=== PATIENT | female | born 1990 | race Caucasian/White ===

== ENCOUNTER 2021-08-31 14:22 | Outpatient (REF) | payer MEDICAID, OTHER, SELFPAY ==
--- NOTE | ~2021-08-31 | US_ITS ---
EXAMINATION: US PELVIS CLINICAL INFORMATION: Pain. Check IUD position. COMPARISON: None TECHNIQUE: Ultrasound of the pelvis is performed using both transabdominal and transvaginal transducers along with Doppler. Transvaginal imaging is performed due to inadequate visualization transabdominally. FINDINGS: The uterus is retroverted and retroflexed and measures 7.8 x 4.6 x 5.2 cm in dimension. There is an IUD in the uterus in satisfactory position. Endometrial thickness is normal measuring 1 cm. No focal uterine lesion is seen. There are nabothian cysts in the cervix. The ovaries are normal-appearing. The right ovary measures 3.8 x 2 x 2.3 cm and the left ovary measures 3.5 x 2.3 x 2.4 cm. There is no fluid in the pelvis. US/US pelvic and transvaginal IMPRESSION: Satisfactory position of IUD.
== END 2021-08-31 14:23 | disposition home or self-care (01) ==
LOC: HO.HMGCX 14:22
PROVIDERS: Visit Provider Internal Medicine
DX: R10.2 Pelvic and perineal pain (principal)
CPT/HCPCS: 76830; 76856